=== PATIENT | male | born 1955 | race Caucasian/White ===

== ENCOUNTER 2022-02-06 09:56 | Outpatient (CLI) | payer MEDICARE, OTHER ==
[2022-02-06] MEDS ORDERED: Magnevist 469MG/ML 20 ML VIAL ONE (12:54)
== END 2022-02-06 09:57 | disposition home or self-care (01) ==
LOC: CSHMRI 09:56
PROVIDERS: ATTEND Urology
DX: R97.20 Elevated prostate specific antigen [PSA] (principal); N40.0 Benign prostatic hyperplasia without lower urinary tract symptoms
CPT/HCPCS: 72197; A9579